=== PATIENT | female | born 1955 | race African-American/Black ===

== ENCOUNTER → 2021-07-16 | Outpatient (CLI) | payer MEDICARE ==
--- NOTE | 2021-07-16 16:31 | KCIC ---
EXAM: Right elbow, 2 views. HISTORY: Swelling. Pain. COMPARISON: None. FINDINGS: 2 views of the right clavicle are obtained. There is a BB overlying the medial clavicle at the site of reported concern. There is no fracture, dislocation or subluxation. There is no suspiciou s osseous lesion. The lung apices are unremarkable. IMPRESSION: No acute osseous finding. Electronically signed by: Valerie Cota MD (07/16/2021 4:28 PM) [id number]
== END ==
LOC: KCIC 15:29
PROVIDERS: ATTEND Family Medicine
DX: M89.8X1 Other specified disorders of bone, shoulder (principal); M25.511 Pain in right shoulder
CPT/HCPCS: 73000